=== PATIENT | female | born 1960 | race African-American/Black ===

== ENCOUNTER 2016-08-27 11:14 | Inpatient (IN) ==
[2016-08-27] MEDS ORDERED: SODIUM CHLORIDE 0.9% 500 ML IV STA (11:58)
[2016-08-27] MEDS ORDERED: CEFEPIME 1,000 MG in SODIUM CHLORIDE 0.9% 100 ML IV STA (11:58)
[2016-08-27 12:21] LABS: Basophils % 0.3 % (0.0-0.8); Eosinophils % 0.4 % (0.00-10.9); Hemoglobin 8.6 GM/DL (12.0-16.0); Immature Granulocytes % 5.1 %; Immature Granulocytes Absolute 0.54 #; Lymphocytes # 0.5 10*3/uL (1.4-4.0); Lymphocytes % 5.1 % (21.3-54.2); Mean Corpuscular HGB Conc 31.9 GM/DL (32-36); Mean Corpuscular Hemoglobin 27 PG (27-34); Mean Corpuscular Volume 85.2 FL (87-102); Monocytes # 0.9 10*3/uL (0.11-0.8); NRBC # 0.03 10*3/uL; Neutrophils # 8.6 10*3/uL (1.4-7.4); Neutrophils % 81.1 % (38.7-73.9); Platelet Count 61 T/CUMM (130-400); Red Blood Count 3.17 MC/CUMM (3.8-5.5); Red Cell Distribution Width 19.4 % (9.3-17.3); White Blood Count 10.6 T/CUMM (4-12)
[2016-08-27 12:28] LABS: Amorphous Crystals,Urine Occasional /HPF (Few); Apearance,Urine Slightly Hazy (Clear); Bacteria,Urine Occasional /HPF (Few); Bilirubin,Urine Negative (Negative); Blood, Urine Negative (Negative); Glucose,Urine (UA) Negative (Negative); Ketones,Urine 20 mg/dL (Negative); Mucus,Urine Many /LPF (Occasional); Nitrite,Urine Negative (Negative); Protein,Urine 30 MG/DL; RBC,Urine 9 /HPF (0-4); Squamous Epithelial Cell,Urine Occasional /HPF (0-10); Urine Color Yellow (Yellow); Urine Specific Gravity 1.016 (1.001-1.035); WBC,Urine 3 /HPF (0-6)
[2016-08-27 12:46] LABS: Burr Cells 2+; Hypochromasia 1+; Target Cells Slight
[2016-08-27 12:52] LABS: Albumin 1.5 G/DL (3.4-5.0); Bilirubin,Total 1.4 MG/DL (0.2-1.0); Calcium 7.7 MG/DL (8.5-10.1); Osmolality,Calculated 264.2 MOS/KG (273-304); Potassium 3.5 MMOL/L (3.5-5.1); Total Protein 6.4 G/DL (6.4-8.3)
--- NOTE | 2016-08-27 13:16 | XRay Report ---
XR chest 1V portable Indication: Shortness of breath, fever Comparison: 14 July 2016 Findings: The heart and mediastinum are stable in size and configuration. Right subclavian Port-A-Cath is unchanged in position. The pulmonary vascularity is normal in caliber. Bilateral lower lung linear densities are present similar to previous exams. No other lung infiltrates, effusions, pneumothorax or other abnormality is demonstrated. Impression: No acute findings or significant change. PROCEDURE INTERPRETED AT [facility] DEPARTMENT OF RADIOLOGY Final Report Signed by: Dr. Idris Tang
[2016-08-27] MEDS ORDERED: BENZTROPINE 2 MG/2 ML AMP IV PRN (13:52)
[2016-08-27] MEDS ORDERED: LACTULOSE 20 GM/30 ML UDCUP PO PRN (13:52)
[2016-08-27] MEDS ORDERED: chlorproMAZINE 25 MG TABLET PO PRN (13:52)
[2016-08-27] MEDS ORDERED: ALPRAZolam 0.25 MG TABLET PO PRN (13:52)
[2016-08-27] MEDS ORDERED: MYLANTA/LIDO VISC 2:1 300 ML BOTTLE SWISH/SWAL PRN (13:52)
[2016-08-27] MEDS ORDERED: ALUMINUM/MAGNES/SIMETH MAX STR 30 ML UDCUP PO PRN (13:52)
[2016-08-27] MEDS ORDERED: chlorproMAZINE INJ 50 MG in SODIUM CHLORIDE 0.9% 100 ML IV PRN (13:52)
[2016-08-27] MEDS ORDERED: TEMAZEPAM 7.5 MG CAPSULE PO PRN (13:52)
[2016-08-27] MEDS ORDERED: traMADol 50 MG TABLET PO PRN (13:52)
[2016-08-27] MEDS ORDERED: MYLANTA/LIDO VISC 2:1 300 ML BOTTLE SWISH/SPIT PRN (13:52)
[2016-08-27] MEDS ORDERED: MAGNESIUM HYDROXIDE SUSP 30 ML UDCUP PO PRN (13:52)
[2016-08-27] MEDS ORDERED: guaiFENesin 200 MG/10 ML UDCUP PO PRN (13:52)
[2016-08-27] MEDS ORDERED: LOPERAMIDE 2 MG CAPSULE PO PRN ×2 (13:52)
[2016-08-27] MEDS ORDERED: chlorproMAZINE INJ 25 MG in SODIUM CHLORIDE 0.9% 100 ML IV PRN (13:52)
[2016-08-27] MEDS ORDERED: diphenhydrAMINE CAP 25 MG CAPSULE PO PRN (13:52)
[2016-08-27] MEDS ORDERED: ACETAMINOPHEN 325 MG TABLET PO PRN (13:52)
[2016-08-27] MEDS ORDERED: PROMETHAZINE INJ 25 MG in SODIUM CHLORIDE 0.9% 50 ML IV PRN (13:52)
--- NOTE | 2016-08-27 14:24 | Emergency Department Note ---
Rusty Maciel Emily, am scribing for, and in the presence of, Zay Gage MD 12:17. Too Maciel Phillip K, MD, personally performed the services described in this documentation, ascribed by Irene Ojeda in my presence, and it is both accurate and complete [id number] . Arrival - Arrival Chief Complaint: Nausea/Vomiting/Diarrhea Stated Complaint: dehydrated,n/v,has blood cancer ED Nursing Triage Note: C/O BLOOD IN URINE SINCE LAST EVENING., ALSO C/O HAVING NAUSEA & VOMITING., DENIES HAVING INCREASE TEMP., STATES CURRENTLY BEING TX FOR BREAST CANCER (L)., STATES HER LAST CHEMO WAS 1 MONTH AGO AND HER LAST RADIATION TX WAS TODAY , + LOWER BACK PAIN Mode of Arrival: Wheelchair Limitations: No Limitations Source: Patient - History of Present Illness HPI Narrative: Pt is a 55 y/o female who came to ED with c/o hematuria and intermittent lightheadedness that started last night. Pt notes having blood in urine previously due to UTI, but denies dysuria. Pt has primary CA of left breast and recently dx with bone CA with radiation daily to lower back and 4 out 6 rounds of chemo completed, starting the next round next week. Pt states having low grade fevers, as well. Pt had blood transfusion 2.5 weeks ago for hospitalization under supervision of Dr. Ronquillo. Pt's last chemo tx was one month ago. Onset (ago): day(s) Consistency: constant Severity: moderate, severe Severity scale (1-10): 8 Allergies/Adverse Reactions: Allergies Allergy/AdvReac Type Severity Reaction Status Date / Time No Known Allergies Allergy Verified 08/27/16 11:26 Home Medications: Home Medications Medication Instructions Recorded Confirmed Type Ondansetron HCl 8 mg PO Q6HR PRN 07/13/16 08/27/16 History Polyethylene Glycol Powder 17 gm PO BID 08/15/16 08/27/16 History [Miralax] Dronabinol [Marinol] 5 mg PO BID #60 capsule 08/18/16 08/27/16 Rx Gabapentin Cap/Tab [Neurontin 100 mg PO TID #0 capsule 08/18/16 08/27/16 Rx Cap/Tab] Pantoprazole Tab [Protonix Tab] 40 mg PO DAILY #30 tablet 08/18/16 08/27/16 Rx Rivaroxaban [Xarelto] 10 mg PO BEDTIME #30 tablet 08/18/16 08/27/16 Rx fentaNYL 75 MCG/HR PATCH 1 patch TRANSDERM Q72H patch 08/18/16 08/27/16 Rx [Duragesic 75 Patch] oxyCODONE ER [OxyCONTIN] 20 mg PO QAM tablet 08/18/16 08/27/16 Rx oxyCODONE ER [OxyCONTIN] 40 mg PO Q12HR tablet 08/18/16 08/27/16 Rx Letrozole [Femara] 2.5 mg PO QAM 08/27/16 08/27/16 History Review of System - Review of System 12 point system: reviewed and no additional remarkable complaints except as stated - Review of System Constitutional: Present: fever (low grade), weakness. Absent: diaphoresis Respiratory: Absent: respiratory distress Cardiovascular: Absent: chest pain Gastrointestinal: Absent: abdominal pain (mild, lower ), nausea, vomiting Musculoskeletal: Present: lower back pain (from radiation tx). Absent: arm pain , leg pain, neck pain Skin: Absent: rash Neurological: Absent: headache Medical,Surgical,& Family Hx - Medical History Cardio: History of: Hypertension Neurology: No history of: Seizures Other: History of: Cancer (breast ca) - Surgical History Cardiac Surgeries: Patient Denies: Cardiac Catheterization Thoracic Surgeries: Patient denies;: Lobectomy Neurologic Surgeries: Patient denies: Neurologic Surgery Reproductive Surgeries: Patient denies;: Gynecologic Surgery - Family History Family History: Reports;: Family Cancer (sister), Family Heart Disease (mother) - Social History Smoking Status: Smoker, status unknown Frequency of Alcohol Use: None Type of Drug Use: None Marital Status: Lives With:: Spouse Functional capacity: independent ambulation Exam Vital Signs: Vital Signs Temperature 99.1 F 08/27/16 11:49 Pulse Rate 109 H 08/27/16 12:15 Respiratory Rate 17 08/27/16 12:15 Blood Pressure 83/52 08/27/16 12:15 O2 Sat by Pulse Oximetry 100 08/27/16 12:15 - General General appearance: alert, in no apparent distress - Head Head exam: Present: atraumatic, normocephalic - Eye Eye exam: Present: PERRL, EOMI - ENT ENT exam: Present: mucous membranes moist. Absent: mucous membranes dry - Neck Neck exam: Present: full ROM. Absent: tenderness - Chest Chest inspection: Present: symmetric chest wall rise. Absent: tenderness - Respiratory Respiratory exam: Present: normal lung sounds bilaterally. Absent: respiratory distress - Cardiovascular Cardiovascular exam: Present: tachycardia, normal heart sounds - Abdominal Exam Abdominal exam: Present: soft. Absent: distention, tenderness, guarding - Extremities Exam Extremities exam: Present: full ROM. Absent: tenderness, pedal edema - Neurological Exam Neurological exam: Present: alert, oriented X3, CN II-XII intact. Absent: motor sensory deficit - Psychiatric Psychiatric exam: Present: normal affect, normal mood - Skin Skin exam: Present: warm, dry, intact Course Course Narrative: Patient discussed with Dr. Ronquillo who will admit for further evaluation. Results - Labs CBC & BMP: 08/27/16 12:05 08/27/16 12:05 Lab Results: I have reviewed the patients labs Labs: Laboratory Tests 08/27/16 08/27/16 12:05 12:05 RBC 3.17 L Hgb 8.6 L Hct 27.0 L MCV 85.2 L MCHC 31.9 L RDW 19.4 H Plt Count 61 L Neut % (Auto) 81.1 H Lymph % (Auto) 5.1 L Neut # (Auto) 8.6 H Lymph # (Auto) 0.5 L Miller # (Auto) 0.9 H Urine Urobilinogen 2.0 H Laboratory Tests 08/27/16 12:05 RBC 3.17 L Hgb 8.6 L Hct 27.0 L MCV 85.2 L MCHC 31.9 L RDW 19.4 H Plt Count 61 L Neut % (Auto) 81.1 H Lymph % (Auto) 5.1 L Neut # (Auto) 8.6 H Lymph # (Auto) 0.5 L Miller # (Auto) 0.9 H Laboratory Tests 08/27/16 12:05 Urine Blood Negative Laboratory Tests 08/27/16 12:05 Sodium 134 L Carbon Dioxide 17 L Anion Gap 18.5 H Creatinine 0.50 L Calculated Osmolality 264.2 L Calcium 7.7 L Total Bilirubin 1.40 H AST 47 H Alkaline Phosphatase 465 H Albumin 1.5 L Globulin 4.9 H Albumin/Globulin Ratio 0.3 L Laboratory Tests 08/27/16 12:05 Magnesium 2.5 H Lactate Dehydrogenase 633 H - Diagnostic Findings Procedure: Chest x-ray: report reviewed by me (No acute findings or significant change.) Disposition Clinical Impression: Lumbar back pain with radiculopathy affecting left lower extremity, Bone metastases, Intractable pain, Breast cancer, Hematuria Case discussed with: patient, patient's family Disposition: Still a Patient Condition: Guarded
[2016-08-27 14:32] LABS: Magnesium 2.5 MG/DL (1.8-2.4); Uric Acid 4.3 MG/DL (2.6-6.0)
[2016-08-27] MEDS: DEXTROSE 5% NACL 0.45% 1,000 ML IV SCH (15:56)
[2016-08-27] MEDS: ONDANSETRON 4 MG/2 ML VIAL IV PRN ×2 (16:07→20:42)
[2016-08-27] MEDS: fentaNYL 100 MCG/HR PATCH TRANSDERM SCH (16:27)
[2016-08-27] MEDS: HYDROmorphone 2 MG/1 ML VIAL IV PRN ×3 (16:28→22:32)
--- NOTE | 2016-08-27 17:08 | XRay Report ---
Referring Physician: Luiz Ronquillo MD Exam: XR KUB Date: August 27, 2016 at 4:14 PM Reason: Generalized abdominal pain Comparison: CT abdomen and pelvis July 13, 2016 Findings: There is mild scattered air within the bowel but no evidence of bowel obstruction. No free air is identified. The renal shadows are largely obscured, but no definite renal calculi are identified. Note is made of a stent within the right upper quadrant, which likely represents a biliary duct stent. Multiple lucent osseous lesions were seen at the spine and pelvis on a recent CT and are better demonstrated on CT. There is a mildly displaced fracture of the right lateral ninth rib, which is not seen on the previous CT and may be pathologic. Impression: 1. There is mild scattered air within the bowel but no evidence of bowel obstruction. 2. There is now a probable common bile duct stent. 3. The patient has known multiple osseous lesions which are better demonstrated on CT. There is also a displaced fracture of the right lateral ninth rib, which may be pathologic. This is not seen on the prior CT. PROCEDURE INTERPRETED AT [facility] DEPARTMENT OF RADIOLOGY Final Report Signed by: Dr. Jaswinder Armenta
[2016-08-27] MEDS ORDERED: METHYLNALTREXONE 12 MG/0.6 ML VIAL SUBCUT ONE (18:00)
[2016-08-27] MEDS: oxyCODONE ER 40 MG TABLET PO SCH (20:36)
[2016-08-27] MEDS ORDERED: LACTULOSE 20 GM/30 ML UDCUP PO SCH (21:00)
[2016-08-28] MEDS ORDERED: HEPARIN LOCK FLUSH 500 UNIT/5 ML SYRINGE IV ONE (02:01)
[2016-08-28 04:58] LABS: Basophils % 0.2 % (0.0-0.8); Eosinophils % 0.7 % (0.00-10.9); Hematocrit 20.4 VOL% (35.7-47.0); Hemoglobin 6.5 GM/DL (12.0-16.0); Immature Granulocytes % 4.9 %; Immature Granulocytes Absolute 0.27 #; Lymphocytes # 0.3 10*3/uL (1.4-4.0); Mean Corpuscular HGB Conc 31.9 GM/DL (32-36); Mean Corpuscular Hemoglobin 26 PG (27-34); Mean Corpuscular Volume 82.9 FL (87-102); Mean Platelet Volume 12.2 FL (9.6-12.0); Monocytes # 0.5 10*3/uL (0.11-0.8); Monocytes % 8.2 % (1.7-12.7); NRBC # 0.03 10*3/uL; Neutrophils # 4.4 10*3/uL (1.4-7.4); Red Blood Count 2.46 MC/CUMM (3.8-5.5); Red Cell Distribution Width 19.5 % (9.3-17.3); White Blood Count 5.5 T/CUMM (4-12)
[2016-08-28 05:07] LABS: Platelet Count 44 T/CUMM (130-400)
[2016-08-28 05:41] LABS: Band Neutrophils 3 % (0-10); Hypochromasia 1+; Lymphocytes 6 % (20-55); Ovalocytes Slight; Platelet Estimate Decreased; Segmented Neutrophils 83 % (50-85); Total Cells Counted 100
[2016-08-28 05:42] LABS: Microcytosis Slight
[2016-08-28] MEDS: DEXTROSE 5% NACL 0.45% 1,000 ML IV SCH ×2 (06:05→20:30)
[2016-08-28] MEDS ORDERED: SODIUM CHLORIDE 0.9% 250 ML IV PRN (07:18)
--- NOTE | 2016-08-28 07:24 | Oncology History&Physical ---
Assessment and Plan (1) Constipation Status: Acute Current Visit: Yes (2) Biliary obstruction due to cancer Status: Acute Current Visit: No (3) Liver metastases Status: Acute Current Visit: No (4) Bone metastases Status: Acute Current Visit: Yes (5) DVT (deep venous thrombosis) Status: Acute Current Visit: No (6) Intractable pain Status: Acute Current Visit: Yes (7) Breast cancer Status: Acute Current Visit: Yes History of Present Illness History of present illness: Ms. Johns is a 55 year old female who is very aggressive breast cancer that is only weakly positive for estrogen receptor and progressed to first-line chemotherapy who is currently receiving palliative chemotherapy to her pelvis due to a large painful left sacral lesion. She has deteriorated fairly rapidly throughout treatment. Her biggest issue is severe diffuse body pain. She also has a known DVT in her left upper extremity and has been on Xarelto for this. She presented to the emergency room yesterday with severe pain and hematuria. The history is difficult to obtain from them as there is one report that his only blood located on the tissue after wiping and other family members report that there is blood throughout the toilet after each urination. Her urinalysis yesterday showed no obvious blood and only had 9 red blood cells reported. She is being covered with antibiotics. She is admitted for pain control and close observation. This morning her hemoglobin is down to 6 we will transfuse 2 units of blood. She has had issues with severe pancytopenia ever since beginning radiation and chemotherapy. She also reports not having a bowel movement now for almost a week. We attempted 1 dose of Relistor yesterday evening and placed her on lactulose twice daily. Home Medications Medication Instructions Recorded Confirmed Type Ondansetron HCl 8 mg PO Q6HR PRN 07/13/16 08/27/16 History Polyethylene Glycol Powder 17 gm PO BID 08/15/16 08/27/16 History [Miralax] Dronabinol [Marinol] 5 mg PO BID #60 capsule 08/18/16 08/27/16 Rx Gabapentin Cap/Tab [Neurontin 100 mg PO TID #0 capsule 08/18/16 08/27/16 Rx Cap/Tab] Pantoprazole Tab [Protonix Tab] 40 mg PO DAILY #30 tablet 08/18/16 08/27/16 Rx Rivaroxaban [Xarelto] 10 mg PO BEDTIME #30 tablet 08/18/16 08/27/16 Rx fentaNYL 75 MCG/HR PATCH 1 patch TRANSDERM Q72H patch 08/18/16 08/27/16 Rx [Duragesic 75 Patch] oxyCODONE ER [OxyCONTIN] 40 mg PO Q12HR tablet 08/18/16 08/27/16 Rx Letrozole [Femara] 2.5 mg PO QAM 08/27/16 08/27/16 History Allergies Allergy/AdvReac Type Severity Reaction Status Date / Time No Known Allergies Allergy Verified 08/27/16 11:26 Medical,Surgical,& Family Hx - Medical History Cardio: History of: Hypertension Neurology: No history of: Seizures Other: History of: Cancer (breast ca) - Surgical History Cardiac Surgeries: Patient Denies: Cardiac Catheterization Thoracic Surgeries: Patient denies;: Lobectomy Neurologic Surgeries: Patient denies: Neurologic Surgery Reproductive Surgeries: Patient denies;: Gynecologic Surgery - Family History Family History: Reports;: Family Cancer (sister), Family Heart Disease (mother) - Social History Smoking Status: Unknown if ever smoked Frequency of Alcohol Use: None Type of Drug Use: None - Constitutional Constitutional: Present: fatigue, malaise, weakness. Absent: chills, fever(s) - Cardiovascular Cardiovascular ROS IM: Absent: chest pain, edema - Respiratory Respiratory: Absent: cough, dyspnea, hemoptysis - Gastrointestinal Gastrointestinal: Present: abdominal pain, constipation, nausea. Absent: diarrhea, vomiting - Genitourinary Genitourinary ROS female: Present: dysuria, hematuria, urinary frequency - Psychiatric Psychiatric General: Present: anxiety, depression Exam - Constitutional Vitals: Period Temp Pulse Resp BP Sys/Mar[place]illa Pulse Ox Last 24 Hr 98.2 F-99.2 F 97-114 16-22 100-112/54-74 94-100 General appearance: mild distress, under weight - Head Head Exam: Present: normocephalic, atraumatic - Eye Eye Exam: Present: EOMI Pupils: Present: PERRL - ENT ENT exam: Present: normal exam, normal oropharynx - Neck Neck exam: Absent: lymphadenopathy, thyromegaly - Respiratory Respiratory exam: Present: CTAB. Absent: wheezes - Cardiovascular Cardiovascular exam: Present: RRR. Absent: JVD - GI/Abdominal GI/Abdominal exam: Present: firm, hypoactive bowel sounds, soft. Absent: ascites, distended, guarding, mass, tenderness - Neurological Exam Neurological exam: Present: alert, oriented X3 - Psychiatric Psychiatric exam: Present: normal affect, normal mood - Skin Skin exam: Present: warm, dry Results - Labs CBC & BMP: 08/28/16 04:00 08/27/16 12:05
[2016-08-28] MEDS ORDERED: ONDANSETRON 4 MG TABLET PO PRN (07:30)
[2016-08-28] MEDS: cefTRIAXone 1,000 MG in SODIUM CHLORIDE 0.9% 100 ML IV SCH (08:16)
[2016-08-28] MEDS ORDERED: oxyCODONE ER 40 MG TABLET PO SCH (09:00)
[2016-08-28] MEDS: GABAPENTIN 100 MG CAPSULE PO SCH ×3 (09:03→20:30)
[2016-08-28] MEDS: oxyCODONE ER 40 MG TABLET PO SCH ×2 (09:03→20:30)
[2016-08-28] MEDS: PANTOPRAZOLE 40 MG TABLET PO SCH (09:03)
[2016-08-28] MEDS: LACTULOSE 20 GM/30 ML UDCUP PO SCH ×2 (09:04→20:29)
[2016-08-28] MEDS: ONDANSETRON 4 MG/2 ML VIAL IV PRN (10:03)
[2016-08-29 05:01] LABS: Basophils % 0.2 % (0.0-0.8); Eosinophils % 0.5 % (0.00-10.9); Hematocrit 28.3 VOL% (35.7-47.0); Hemoglobin 9.2 GM/DL (12.0-16.0); Immature Granulocytes % 5.1 %; Immature Granulocytes Absolute 0.33 #; Lymphocytes # 0.4 10*3/uL (1.4-4.0); Lymphocytes % 5.9 % (21.3-54.2); Mean Corpuscular HGB Conc 32.5 GM/DL (32-36); Mean Corpuscular Hemoglobin 27 PG (27-34); Monocytes # 0.6 10*3/uL (0.11-0.8); Monocytes % 9.8 % (1.7-12.7); NRBC # 0.03 10*3/uL; Neutrophils # 5.1 10*3/uL (1.4-7.4); Neutrophils % 78.5 % (38.7-73.9); Red Blood Count 3.41 MC/CUMM (3.8-5.5); White Blood Count 6.5 T/CUMM (4-12)
[2016-08-29 05:34] LABS: Albumin 1.2 G/DL (3.4-5.0); Bilirubin,Total 1.1 MG/DL (0.2-1.0); Calcium 7.3 MG/DL (8.5-10.1); Magnesium 2.3 MG/DL (1.8-2.4); Platelet Count 33 T/CUMM (130-400); Potassium 2.8 MMOL/L (3.5-5.1); Total Protein 5.2 G/DL (6.4-8.3)
[2016-08-29 06:12] LABS: Lymphocytes 5 % (20-55); Total Cells Counted 100
[2016-08-29 06:13] LABS: Band Neutrophils 5 % (0-10); Metamyelocytes 4 %; Myelocytes 1 %; Platelet Estimate Decreased; Segmented Neutrophils 79 % (50-85)
[2016-08-29 06:14] LABS: Hypochromasia 2+
[2016-08-29] MEDS: HYDROmorphone 2 MG/1 ML VIAL IV PRN (06:38)
[2016-08-29] MEDS: GABAPENTIN 100 MG CAPSULE PO SCH ×3 (09:09→20:45)
[2016-08-29] MEDS: cefTRIAXone 1,000 MG in SODIUM CHLORIDE 0.9% 100 ML IV SCH (09:09)
[2016-08-29] MEDS: PANTOPRAZOLE 40 MG TABLET PO SCH (09:10)
[2016-08-29] MEDS: oxyCODONE ER 40 MG TABLET PO SCH ×2 (09:10→20:44)
[2016-08-29] MEDS: LACTULOSE 20 GM/30 ML UDCUP PO SCH ×2 (09:12→20:44)
--- NOTE | 2016-08-29 09:54 | Oncology Progress Note ---
Assessment and Plan (1) Constipation Status: Acute Current Visit: Yes (2) Biliary obstruction due to cancer Status: Acute Current Visit: No (3) Liver metastases Status: Acute Current Visit: No (4) Bone metastases Status: Acute Current Visit: Yes (5) DVT (deep venous thrombosis) Status: Acute Current Visit: No (6) Intractable pain Status: Acute Current Visit: Yes (7) Breast cancer Status: Acute Current Visit: Yes Oncology Subjective PN Interval history: Ms. Johns states she feels better today. She received 2 units of blood yesterday with a good response based on her hemoglobin. She is hypokalemic today as well add potassium to her IV fluids. We are holding her anticoagulation for her known left upper extremity DVT due to her persistent vaginal bleeding versus hematuria. She states she is wearing a pad which only has occasional blood spots throughout the day. We will continue with IV narcotics for pain control. Her prognosis remains very poor and I read that to the daughter this morning. I anticipate that she will be in the hospital for a few days just like last time. Will resume radiation tomorrow once they return. Exam - Constitutional Vitals: Period Temp Pulse Resp BP Sys/Maravilla Pulse Ox Last 24 Hr 98.2 F-100.2 F 92-116 16-20 92-143/52-72 95-100 General appearance: normal weight, mild distress - Head Head Exam: Present: normocephalic, atraumatic - Eye Eye Exam: Present: EOMI Pupils: Present: PERRL - ENT ENT exam: Present: normal exam, normal oropharynx - Neck Neck exam: Absent: lymphadenopathy, thyromegaly - Respiratory Respiratory exam: Present: CTAB. Absent: wheezes - Cardiovascular Cardiovascular exam: Present: RRR. Absent: irregular rhythm, JVD - GI/Abdominal GI/Abdominal exam: Present: soft. Absent: ascites, distended, mass - Neurological Exam Neurological exam: Present: alert, oriented X3 - Skin Skin exam: Present: warm, dry Results - Labs CBC & BMP: 08/29/16 04:00 08/29/16 04:00 Lab Results: I have reviewed the past 24 hour labs
[2016-08-29] MEDS: DEXT 5% NACL 0.45% KCL 20 MEQ 20 MEQ/1,000 ML BAG IV SCH (10:21)
[2016-08-30] MEDS: DEXT 5% NACL 0.45% KCL 20 MEQ 20 MEQ/1,000 ML BAG IV SCH (04:42)
[2016-08-30 06:10] LABS: Basophils % 0.2 % (0.0-0.8); Eosinophils # 0.1 10*3/uL (0.0-0.87); Eosinophils % 0.9 % (0.00-10.9); Hematocrit 25.4 VOL% (35.7-47.0); Hemoglobin 8.4 GM/DL (12.0-16.0); Immature Granulocytes % 4.8 %; Immature Granulocytes Absolute 0.27 #; Lymphocytes # 0.5 10*3/uL (1.4-4.0); Lymphocytes % 8.1 % (21.3-54.2); Mean Corpuscular HGB Conc 33.1 GM/DL (32-36); Mean Corpuscular Hemoglobin 27 PG (27-34); Mean Corpuscular Volume 82.7 FL (87-102); Monocytes # 0.6 10*3/uL (0.11-0.8); Monocytes % 9.9 % (1.7-12.7); NRBC # 0.04 10*3/uL; Neutrophils # 4.3 10*3/uL (1.4-7.4); Neutrophils % 76.1 % (38.7-73.9); Red Blood Count 3.07 MC/CUMM (3.8-5.5); Red Cell Distribution Width 18.4 % (9.3-17.3); White Blood Count 5.6 T/CUMM (4-12)
[2016-08-30 06:15] LABS: Platelet Count 25 T/CUMM (130-400)
[2016-08-30 06:34] LABS: Calcium 7.1 MG/DL (8.5-10.1); Magnesium 2.1 MG/DL (1.8-2.4); Osmolality,Calculated 269.8 MOS/KG (273-304); Potassium 3.1 MMOL/L (3.5-5.1)
[2016-08-30 06:42] LABS: Band Neutrophils 3 % (0-10); Eosinophils 1 % (0-10); Hypochromasia 2+; Nucleated Red Blood Cells 1 (0-5); Platelet Estimate Decreased; Segmented Neutrophils 89 % (50-85); Total Cells Counted 100
[2016-08-30] MEDS ORDERED: SODIUM CHLORIDE 0.9% 250 ML IV PRN ×2 (07:40→09:10)
--- NOTE | 2016-08-30 07:48 | Oncology Progress Note ---
Assessment and Plan (1) Breast cancer Status: Acute Current Visit: Yes (2) Intractable pain Status: Acute Current Visit: Yes (3) Constipation Status: Acute Current Visit: Yes (4) Biliary obstruction due to cancer Status: Acute Current Visit: No (5) Liver metastases Status: Acute Current Visit: No (6) Bone metastases Status: Acute Current Visit: Yes (7) DVT (deep venous thrombosis) Status: Acute Current Visit: No (8) Pancytopenia Status: Acute Current Visit: Yes Oncology Subjective PN Interval history: Ms. Johns states that her pain is slightly better than it was upon admission but she is still having fairly significant mid low back pain. She completed radiation last week so she does not need to be transported there today. Her platelet count is down to 25,000. I think her pancytopenia is most likely related to radiation effects to her pelvis along with diffuse marrow involvement from tumor. She has not had chemotherapy now in almost 5 weeks. I will increase her Neurontin to a dose of 300 mg p.o. twice daily. She is receiving Dilaudid IV every 2 hours. If this continues we may have to consider a JOB ESTIMATOR pump. We will continue with long-acting oxycodone at 40 mg twice daily. She also has a fentanyl patch at [address] Jo with pain management has seen her before so we will consider consulting him in the next day or 2 if her pain does not improve. I do not see where some type of injection or nerve block is feasible for her at this point due to diffuse bony involvement. Her prognosis is very poor. This tumor was neglected for many many months and now I am afraid that we are not able to turn around her disease course. She very well may not leave the hospital from this admission. I will consult physical therapy to begin work with her to at least try to get her out of bed and assist with ambulation. She continues to have slight vaginal bleeding so I am transfusing platelets today. If this persists, we will consider a GILL TENDER consult. I have held her Xarelto due to her GILL TENDER bleeding and her severe pancytopenia. She has known left upper extremity DVT is at high risk for further DVT elsewhere. I have no choice but to hold her anticoagulation at this point. Exam - Constitutional Vitals: Period Temp Pulse Resp BP Sys/Maravilla Pulse Ox Last 24 Hr 98.1 F-100.3 F 82-120 18-20 85-113/52-70 94-97 General appearance: normal weight, mild distress - Head Head Exam: Present: normocephalic, atraumatic - Eye Eye Exam: Present: EOMI Pupils: Present: PERRL - ENT ENT exam: Present: normal exam, normal oropharynx - Neck Neck exam: Absent: lymphadenopathy, thyromegaly - Respiratory Respiratory exam: Present: CTAB. Absent: wheezes - Cardiovascular Cardiovascular exam: Present: RRR. Absent: irregular rhythm, JVD - GI/Abdominal GI/Abdominal exam: Present: soft. Absent: ascites, distended, mass - Neurological Exam Neurological exam: Present: alert, oriented X3 - Psychiatric Psychiatric exam: Present: depressed - Skin Skin exam: Present: warm, dry Results - Labs CBC & BMP: 08/30/16 04:00 08/30/16 04:00 Lab Results: I have reviewed the past 24 hour labs
[2016-08-30] MEDS: fentaNYL 100 MCG/HR PATCH TRANSDERM SCH (08:03)
[2016-08-30] MEDS: oxyCODONE ER 40 MG TABLET PO SCH ×2 (08:06→20:58)
[2016-08-30] MEDS: cefTRIAXone 1,000 MG in SODIUM CHLORIDE 0.9% 100 ML IV SCH (08:10)
[2016-08-30] MEDS: HYDROmorphone 2 MG/1 ML VIAL IV PRN ×2 (08:13→13:44)
[2016-08-30] MEDS: DEXT 5% NACL 0.45% KCL 40 MEQ 40 MEQ/1,000 ML BAG IV SCH (08:53)
[2016-08-30] MEDS: LACTULOSE 20 GM/30 ML UDCUP PO SCH ×2 (10:21→20:57)
[2016-08-30] MEDS: PANTOPRAZOLE 40 MG TABLET PO SCH (10:22)
[2016-08-30] MEDS: GABAPENTIN 300 MG CAPSULE PO SCH ×2 (10:22→20:58)
[2016-08-31 05:14] LABS: Basophils % 0.4 % (0.0-0.8); Eosinophils % 0.7 % (0.00-10.9); Hematocrit 26.2 VOL% (35.7-47.0); Hemoglobin 8.4 GM/DL (12.0-16.0); Immature Granulocytes % 3.6 %; Lymphocytes # 0.5 10*3/uL (1.4-4.0); Lymphocytes % 8.4 % (21.3-54.2); Mean Corpuscular HGB Conc 32.1 GM/DL (32-36); Mean Corpuscular Hemoglobin 27 PG (27-34); Mean Corpuscular Volume 85.1 FL (87-102); Mean Platelet Volume 11.6 FL (9.6-12.0); Monocytes # 0.5 10*3/uL (0.11-0.8); Monocytes % 9.3 % (1.7-12.7); NRBC # 0.02 10*3/uL; Neutrophils # 4.3 10*3/uL (1.4-7.4); Neutrophils % 77.6 % (38.7-73.9); Platelet Count 42 T/CUMM (130-400); Red Blood Count 3.08 MC/CUMM (3.8-5.5); Red Cell Distribution Width 18.6 % (9.3-17.3); White Blood Count 5.6 T/CUMM (4-12)
[2016-08-31 05:37] LABS: Band Neutrophils 3 % (0-10); Eosinophils 1 % (0-10); Lymphocytes 4 % (20-55); Metamyelocytes 1 %; Segmented Neutrophils 85 % (50-85); Total Cells Counted 100
[2016-08-31 05:38] LABS: Acanthocytes Few; Burr Cells Slight; Hypochromasia 1+; Microcytosis 1+; Platelet Estimate Decreased
[2016-08-31 05:41] LABS: Calcium 7.4 MG/DL (8.5-10.1); Magnesium 2.1 MG/DL (1.8-2.4); Osmolality,Calculated 272.7 MOS/KG (273-304); Potassium 3.7 MMOL/L (3.5-5.1)
[2016-08-31] MEDS: DEXT 5% NACL 0.45% KCL 40 MEQ 40 MEQ/1,000 ML BAG IV SCH (05:48)
--- NOTE | 2016-08-31 07:52 | Oncology Progress Note ---
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 Johns appears about the same as yesterday. She still complains of back pain particularly after she ambulates and before bedtime. She did not agree to therapy yesterday. She continues to have vaginal bleeding and states she used 4 -5 pads yesterday. She denies any blood in her urine when she urinates. She is getting out of bed numerous times today to go to the restroom. I have held anticoagulation for her known left upper extremity DVT due to her thrombocytopenia and her ABALONE FISHERMAN bleeding. I think it would be miller to ask gynecology to evaluate her for the possible source of bleeding particularly since I am holding anticoagulation. We do have ESTRELLITA hose in place and she is ambulating to help prevent further DVT. For now we are basically just managing her pain. She does not appear to be overtly infected. She is very weak and is not taking in very much p.o. intake. I had a lengthy conversation with her friend today who is in the room every day with her. I explained to him that she is doing very poorly I think that she is not going to make it much longer in her current condition. She is requiring significant amounts of narcotic and I think she is also given up. She continues not to eat and not get out of bed very much. Her prognosis is likely measured only in a few months. She is to pancytopenic for chemotherapy at this time. If her blood counts remain stable for the next 24-48 hours, we could consider another dose of chemotherapy. However, I am unsure if chemotherapy would really be of any benefit to her since she failed first-line chemotherapy just 2 months ago. It is a very sad situation. Exam - Constitutional Vitals: Period Temp Pulse Resp BP Sys/Maravilla Pulse Ox Last 24 Hr 98.6 F-99.9 F 101-106 16-20 90-112/53-64 94-98 General appearance: normal weight, no acute distress - Head Head Exam: Present: normocephalic, atraumatic - Eye Eye Exam: Present: EOMI Pupils: Present: PERRL - ENT ENT exam: Present: normal exam, normal oropharynx - Neck Neck exam: Absent: lymphadenopathy, thyromegaly - Respiratory Respiratory exam: Present: CTAB. Absent: wheezes - Cardiovascular Cardiovascular exam: Present: RRR. Absent: irregular rhythm, JVD - GI/Abdominal GI/Abdominal exam: Present: soft. Absent: ascites, distended, mass - Neurological Exam Neurological exam: Present: alert, oriented X3 - Psychiatric Psychiatric exam: Present: normal affect, normal mood - Skin Skin exam: Present: warm, dry Results - Labs CBC & BMP: 08/31/16 04:00 08/31/16 04:00 Lab Results: I have reviewed the past 24 hour labs
[2016-08-31] MEDS: cefTRIAXone 1,000 MG in SODIUM CHLORIDE 0.9% 100 ML IV SCH (08:49)
[2016-08-31] MEDS: LETROZOLE 2.5 MG TABLET PO SCH (08:49)
[2016-08-31] MEDS: oxyCODONE ER 40 MG TABLET PO SCH ×2 (08:49→20:43)
[2016-08-31] MEDS: PANTOPRAZOLE 40 MG TABLET PO SCH (08:49)
[2016-08-31] MEDS: GABAPENTIN 300 MG CAPSULE PO SCH ×2 (08:50→20:43)
[2016-08-31] MEDS: LACTULOSE 20 GM/30 ML UDCUP PO SCH ×2 (10:28→20:43)
[2016-08-31] MEDS: DEXTROSE 5% NACL 0.45% 1,000 ML IV SCH (17:36)
[2016-09-01] MEDS: DEXT 5% NACL 0.45% KCL 40 MEQ 40 MEQ/1,000 ML BAG IV SCH ×2 (02:26→22:17)
[2016-09-01] MEDS: HYDROmorphone 2 MG/1 ML VIAL IV PRN ×2 (04:20→22:16)
[2016-09-01 05:58] LABS: Eosinophils % 0.9 % (0.00-10.9); Hematocrit 24.7 VOL% (35.7-47.0); Hemoglobin 8.2 GM/DL (12.0-16.0); Immature Granulocytes % 2.1 %; Lymphocytes # 0.4 10*3/uL (1.4-4.0); Lymphocytes % 9.4 % (21.3-54.2); Mean Corpuscular HGB Conc 33.2 GM/DL (32-36); Mean Corpuscular Hemoglobin 29 PG (27-34); Mean Corpuscular Volume 86.1 FL (87-102); Mean Platelet Volume 13.1 FL (9.6-12.0); Monocytes # 0.5 10*3/uL (0.11-0.8); Monocytes % 10.4 % (1.7-12.7); NRBC # 0.02 10*3/uL; Neutrophils # 3.6 10*3/uL (1.4-7.4); Neutrophils % 77.2 % (38.7-73.9); Red Blood Count 2.87 MC/CUMM (3.8-5.5); Red Cell Distribution Width 18.5 % (9.3-17.3); White Blood Count 4.7 T/CUMM (4-12)
[2016-09-01 06:05] LABS: Platelet Count 31 T/CUMM (130-400)
[2016-09-01 06:36] LABS: Calcium 7.1 MG/DL (8.5-10.1); Osmolality,Calculated 268.8 MOS/KG (273-304)
[2016-09-01 07:06] LABS: Band Neutrophils 3 % (0-10); Eosinophils 1 % (0-10); Hypochromasia 1+; Lymphocytes 7 % (20-55); Segmented Neutrophils 81 % (50-85); Total Cells Counted 100
[2016-09-01 07:07] LABS: Microcytosis 1+; Platelet Estimate Decreased
--- NOTE | 2016-09-01 07:20 | Oncology Progress Note ---
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 Johns seems about the same today. She states her pain is fairly well- controlled with her current regimen. We had a lengthy discussion today about her lack of motivation to get out of bed and participate in physical therapy. I explained to her that with her current decreased p.o. intake and lack of ambulation, she will not likely survive very long. She needs to do more physical activity and improve her p.o. intake if we are ever going to have a chance of giving her any type of meaningful survival. Her blood counts are still too low for chemotherapy. Even weekly dose chemotherapy would be too toxic for her at this time. She is on Femara and hopefully this is providing some benefit. She is still having vaginal spotting and we have asked CLOTH TEARER to evaluate her for this. I do not think giving her any platelets will change this as she was having spotting even with the platelet count closer to 50. She has been on Rocephin for the last 4 days. I am still holding her anticoagulation due to her thrombocytopenia and her vaginal bleeding. Exam - Constitutional Vitals: Period Temp Pulse Resp BP Sys/Maravilla Pulse Ox Last 24 Hr 97.5 F-99.6 F 99-105 16-20 86-93/48-56 94-98 General appearance: normal weight, no acute distress - Head Head Exam: Present: normocephalic, atraumatic - Eye Eye Exam: Present: EOMI Pupils: Present: PERRL - ENT ENT exam: Present: normal exam, normal oropharynx - Neck Neck exam: Absent: lymphadenopathy, thyromegaly - Respiratory Respiratory exam: Present: CTAB. Absent: wheezes - Cardiovascular Cardiovascular exam: Present: RRR. Absent: JVD, systolic murmur - GI/Abdominal GI/Abdominal exam: Present: soft. Absent: ascites, distended, mass - Neurological Exam Neurological exam: Present: alert, oriented X3 - Psychiatric Psychiatric exam: Present: normal affect, normal mood - Skin Skin exam: Present: warm, dry Results - Labs CBC & BMP: 09/01/16 04:00 09/01/16 04:00 Lab Results: I have reviewed the past 24 hour labs
[2016-09-01] MEDS: LACTULOSE 20 GM/30 ML UDCUP PO SCH ×2 (09:52→21:12)
[2016-09-01] MEDS: LETROZOLE 2.5 MG TABLET PO SCH (09:52)
[2016-09-01] MEDS: GABAPENTIN 300 MG CAPSULE PO SCH ×2 (09:52→21:12)
[2016-09-01] MEDS: PANTOPRAZOLE 40 MG TABLET PO SCH (09:52)
[2016-09-01] MEDS: oxyCODONE ER 40 MG TABLET PO SCH ×2 (09:52→21:08)
--- NOTE | 2016-09-01 12:12 | Consultation ---
Assessment and Plan (1) Postmenopausal bleeding Status: Acute Assessment and plan: Pelvic ultrasound ordered to assess endometrial thickness. This patient's bleeding has 2 probabilities. #1 she perhaps has endometrial hyperplasia versus endometrial CA. #2 probably could be a result of the recent initiation of Xarelto. As of note the bleeding has decreased since his Xarelto dosing has decreased. We will continue to follow post ultrasound for further recommendation. Current Visit: Yes (2) Bone metastases Status: Acute Current Visit: Yes (3) Intractable pain Status: Acute Current Visit: Yes (4) Breast cancer Status: Acute Current Visit: Yes (5) Vaginal bleeding Status: Acute Current Visit: Yes History of Present Illness - Data of Consult Patient: new to practice Consult date: 09/01/16 Requesting Physician: Luiz Ronquillo - Consult Narrative Reason for consult: Vaginal bleeding History of present illness: Ms. Johns is a 55 year old female With aggressive and metastatic breast cancer with metastasis to the bone who was admitted secondary to pain. Patient reported vaginal bleeding 4 days. She states that the bleeding is spotting that she sees in her undergarments. She also admits that she was recently started on Xarelto for known DVT approximately 1 month ago. 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 CC: Luiz Ronquillo MD - Home Medications and Allergies Home Medications: Home Medications Medication Instructions Recorded Confirmed Type Ondansetron HCl 8 mg PO Q6HR PRN 07/13/16 08/27/16 History Polyethylene Glycol Powder 17 gm PO BID 08/15/16 08/27/16 History [Miralax] Dronabinol [Marinol] 5 mg PO BID #60 capsule 08/18/16 08/27/16 Rx Gabapentin Cap/Tab [Neurontin 100 mg PO TID #0 capsule 08/18/16 08/27/16 Rx Cap/Tab] Pantoprazole Tab [Protonix Tab] 40 mg PO DAILY #30 tablet 08/18/16 08/27/16 Rx Rivaroxaban [Xarelto] 10 mg PO BEDTIME #30 tablet 08/18/16 08/27/16 Rx fentaNYL 75 MCG/HR PATCH 1 patch TRANSDERM Q72H patch 08/18/16 08/27/16 Rx [Duragesic 75 Patch] oxyCODONE ER [OxyCONTIN] 40 mg PO Q12HR tablet 04/26/17 05/05/17 Rx Letrozole [Femara] 2.5 mg PO QAM 08/27/16 08/27/16 History Allergies/Adverse Reactions: Allergies Allergy/AdvReac Type Severity Reaction Status Date / Time No Known Allergies Allergy Verified 08/27/16 11:26 12 point system: reviewed and no additional remarkable complaints except as stated - Genitourinary Genitourinary: Present: abnormal vaginal bleeding (Postmenopausal bleeding 4 days) Medical,Surgical,& Family Hx - Medical History Cardio: History of: Hypertension Neurology: No history of: Seizures Other: History of: Cancer (breast ca) - Surgical History Cardiac Surgeries: Patient Denies: Cardiac Catheterization Thoracic Surgeries: Patient denies;: Lobectomy Neurologic Surgeries: Patient denies: Neurologic Surgery Reproductive Surgeries: Patient denies;: Gynecologic Surgery - Family History Family History: Reports;: Family Cancer (sister), Family Heart Disease (mother) - Social History Smoking Status: Unknown if ever smoked Frequency of Alcohol Use: None Type of Drug Use: None Exam - Constitutional Vitals: Period Temp Pulse Resp BP Sys/Maravilla Pulse Ox Last 24 Hr 97.2 F-99.6 F 100-111 16-20 86-95/47-56 94-99 General appearance: no acute distress - Head Head exam: Present: normocephalic - Neck Neck exam: Present: normal inspection - Respiratory Respiratory exam: Present: clear to auscultation bilaterally - Cardiovascular Cardiovascular exam: Present: regular rate and rhythm - GI/Abdominal GI/Abdominal exam: Present: normal bowel sounds, distended, soft - Extremities Exam Extremities exam: Present: normal inspection - Back Exam Back exam: Present: normal inspection - Neurological Exam Neurological exam: Present: alert, oriented X3 - Skin Skin exam: Present: normal color, warm Results - Labs CBC & BMP: 09/01/16 04:00 09/01/16 04:00
--- NOTE | 2016-09-01 16:32 | Ultrasound Report ---
Referring Physician: Marianne Alvarez Exam: US pelvic complete Date: September 01, 2016 Reason: Postmenopausal bleeding Comparison: CT abdomen and pelvis July 13, 2016 Technique: Transabdominal grayscale ultrasound images of the pelvis are obtained. Ultrasound images were captured and stored. Findings: The uterus is anteverted and measures 6.9 x 4.6 x 3.4 cm. The endometrium measures 0.3 cm in thickness, which is within normal limits. The right ovary measures 3.7 x 2.0 x 1.8 cm, and the left ovary measures 1.8 x 1.8 x 1.4 cm. There is a 2.6 x 1.5 x 1.4 cm right ovarian cyst, which has a simple appearance. There is also moderate free fluid within the pelvis. Impression: 1. The uterus is unremarkable. 2. 2.6 cm right ovarian cyst. This is an unusual finding for a postmenopausal female, and follow-up is recommended to confirm a benign process. Of note, this is not clearly seen on the previous CT, and differential includes focal ascites in this patient with moderate free fluid within the pelvis. 3. Moderate free fluid within the pelvis. PROCEDURE INTERPRETED AT [facility] DEPARTMENT OF RADIOLOGY Final Report Signed by: Dr. Jaswinder Armenta
[2016-09-02 06:11] LABS: Basophils % 0.2 % (0.0-0.8); Eosinophils # 0.1 10*3/uL (0.0-0.87); Eosinophils % 1.4 % (0.00-10.9); Hematocrit 24.9 VOL% (35.7-47.0); Immature Granulocytes % 3.7 %; Immature Granulocytes Absolute 0.16 #; Lymphocytes # 0.5 10*3/uL (1.4-4.0); Mean Corpuscular HGB Conc 32.1 GM/DL (32-36); Mean Corpuscular Hemoglobin 28 PG (27-34); Mean Corpuscular Volume 85.6 FL (87-102); Monocytes # 0.6 10*3/uL (0.11-0.8); Monocytes % 13.6 % (1.7-12.7); NRBC # 0.03 10*3/uL; Neutrophils % 69.1 % (38.7-73.9); Red Blood Count 2.91 MC/CUMM (3.8-5.5); Red Cell Distribution Width 18.6 % (9.3-17.3); White Blood Count 4.3 T/CUMM (4-12)
[2016-09-02 06:34] LABS: Calcium 7.5 MG/DL (8.5-10.1); Osmolality,Calculated 273.5 MOS/KG (273-304); Potassium 4.4 MMOL/L (3.5-5.1)
[2016-09-02 06:39] LABS: Platelet Count 29 T/CUMM (130-400)
[2016-09-02 06:41] LABS: Band Neutrophils 4 % (0-10); Hypochromasia 2+; Lymphocytes 6 % (20-55); Platelet Estimate Decreased; Segmented Neutrophils 88 % (50-85); Total Cells Counted 100
--- NOTE | 2016-09-02 08:05 | Oncology Progress Note ---
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 Johns seems to be doing well this morning. She states that she did ambulate some with physical therapy yesterday. After she described to me it sounds like it was very little. She still was not taking in very much p.o. intake. On oral examination she has some oral candidiasis well treated with Diflucan. Her motivation still seems quite low and understandably so she has significant depression from her current situation. I again encouraged her to get out of bed and try to improve her in p.o. intake. Otherwise she will continue to decline. She still pancytopenic from her radiation and I am unable to do any type of chemotherapy due to this. I think read a good place to repeat staging scans with CT and bone scan. Anticipate that she will likely be in the hospital for a few more days. ANIMAL CARETAKER SUPERVISOR has seen her and has ordered a uterine ultrasound. Exam - Constitutional Vitals: Period Temp Pulse Resp BP Sys/Maravilla Pulse Ox Last 24 Hr 96.5 F-98.7 F 76-111 16-23 89-106/47-67 92-100 General appearance: normal weight, mild distress - Head Head Exam: Present: normocephalic, atraumatic - Eye Eye Exam: Present: EOMI Pupils: Present: PERRL - ENT ENT exam: Present: normal exam, other (Oral candidiasis and mucositis) - Neck Neck exam: Absent: lymphadenopathy, thyromegaly - Respiratory Respiratory exam: Present: CTAB. Absent: wheezes - Cardiovascular Cardiovascular exam: Present: RRR. Absent: JVD - GI/Abdominal GI/Abdominal exam: Present: soft. Absent: ascites, mass Results - Labs CBC & BMP: 09/02/16 04:30 09/02/16 04:30 Lab Results: I have reviewed the past 24 hour labs
[2016-09-02] MEDS: HYDROmorphone 2 MG/1 ML VIAL IV PRN (08:27)
--- NOTE | 2016-09-02 08:34 | Consultation ---
Assessment and Plan (1) Postmenopausal bleeding Status: Acute Assessment and plan: Pelvic ultrasound reveals a normal appearing uterus with a normal endometrial lining thickness. She does have what appears to be a small 2.5 cm ovarian cyst which was not visualized on previous CT scan. This appearance of an ovarian cyst could very likely be due to to the abdominal pelvic ascites more so than a true cyst. In light of her normal uterine findings, is most probable that her vaginal bleeding is due to the administration of anticoagulants and should resolve with the decrease in dosage. Patient would benefit from repeat pelvic ultrasound in 2 weeks follow-up on questionable ovarian cyst and I am happy to follow her as an outpatient. At this time she is not a good surgical candidate so no other gynecological intervention recommended at the current time. Current Visit: Yes (2) Bone metastases Status: Acute Current Visit: Yes (3) Intractable pain Status: Acute Current Visit: Yes (4) Breast cancer Status: Acute Current Visit: Yes (5) Vaginal bleeding Status: Acute Current Visit: Yes History of Present Illness - Data of Consult Consult date: 09/02/16 - Consult Narrative History of present illness: Ms. Johns is a 55 year old female This is a follow-up to consultation from yesterday secondary to postmenopausal bleeding. Patient underwent pelvic ultrasound with results for review CC: Luiz Ronquillo MD - Home Medications and Allergies Home Medications: Home Medications Medication Instructions Recorded Confirmed Type Ondansetron HCl 8 mg PO Q6HR PRN 07/13/16 08/27/16 History Polyethylene Glycol Powder 17 gm PO BID 08/15/16 08/27/16 History [Miralax] Dronabinol [Marinol] 5 mg PO BID #60 capsule 08/18/16 08/27/16 Rx Gabapentin Cap/Tab [Neurontin 100 mg PO TID #0 capsule 08/18/16 08/27/16 Rx Cap/Tab] Pantoprazole Tab [Protonix Tab] 40 mg PO DAILY #30 tablet 08/18/16 08/27/16 Rx Rivaroxaban [Xarelto] 10 mg PO BEDTIME #30 tablet 08/18/16 08/27/16 Rx fentaNYL 75 MCG/HR PATCH 1 patch TRANSDERM Q72H patch 08/18/16 08/27/16 Rx [Duragesic 75 Patch] oxyCODONE ER [OxyCONTIN] 40 mg PO Q12HR tablet 08/18/16 08/27/16 Rx Letrozole [Femara] 2.5 mg PO QAM 08/27/16 08/27/16 History Allergies/Adverse Reactions: Allergies Allergy/AdvReac Type Severity Reaction Status Date / Time No Known Allergies Allergy Verified 08/27/16 11:26 Medical,Surgical,& Family Hx - Medical History Cardio: History of: Hypertension Neurology: No history of: Seizures Other: History of: Cancer (breast ca) - Surgical History Cardiac Surgeries: Patient Denies: Cardiac Catheterization Thoracic Surgeries: Patient denies;: Lobectomy Neurologic Surgeries: Patient denies: Neurologic Surgery Reproductive Surgeries: Patient denies;: Gynecologic Surgery - Family History Family History: Reports;: Family Cancer (sister), Family Heart Disease (mother) - Social History Smoking Status: Unknown if ever smoked Frequency of Alcohol Use: None Type of Drug Use: None Exam - Constitutional Vitals: Period Temp Pulse Resp BP Sys/Maravilla Pulse Ox Last 24 Hr 96.5 F-98.7 F 76-111 16-23 89-106/47-67 92-100 Results - Labs CBC & BMP: 09/02/16 04:30 09/02/16 04:30
[2016-09-02] MEDS: oxyCODONE ER 40 MG TABLET PO SCH ×2 (09:47→20:25)
[2016-09-02] MEDS: LETROZOLE 2.5 MG TABLET PO SCH (09:47)
[2016-09-02] MEDS: fentaNYL 100 MCG/HR PATCH TRANSDERM SCH (09:47)
[2016-09-02] MEDS: FLUCONAZOLE INJ 200 MG in PREMIX 1 EACH IV SCH (09:47)
[2016-09-02] MEDS: LACTULOSE 20 GM/30 ML UDCUP PO SCH ×2 (09:47→20:26)
[2016-09-02] MEDS: PANTOPRAZOLE 40 MG TABLET PO SCH (09:47)
[2016-09-02] MEDS: GABAPENTIN 300 MG CAPSULE PO SCH ×2 (09:47→20:25)
--- NOTE | 2016-09-02 10:26 | CT Report ---
CT chest abdomen pelvis w con Indication: Metastatic breast cancer Comparison: CT abdomen pelvis dated July 13, 2016. CT chest dated May 31, 2016. Technique: Multiple axial tomographic images of the chest, abdomen and pelvis were obtained after the administration of 100 cc Omnipaque 350 intravenous contrast. Findings: Heart appears mildly prominent. No progressive mediastinal adenopathy. Emphysematous change of the lungs present. Small bilateral pleural effusions with moderate atelectasis of the bilateral lower lobes. No discrete pulmonary metastatic lesion identified. However, lesion within atelectatic lung is not excluded. Interval decrease in size of left breast mass measuring approximately 4.2 cm in largest axial dimension compared to 5.6 cm on comparison study when measured in similar fashion. Interval decreased size of left axillary and left subpectoral massing/adenopathy. 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 Interval progressed diffuse osseous metastatic disease including the proximal humeri bilaterally, scapula bilaterally, sternum, bilateral ribs, thoracic/lumbar/sacral spine, pelvis, and proximal bilateral femurs. Lesions are both lytic and sclerotic but are predominantly lytic. Patient remains at increased risk of fracture including spine. Mild superior and inferior endplate deformity of L4 appears unchanged. There is again prominent metastatic lesion within the left iliac wing with soft tissue component appearing more prominent than on prior exam measuring approximately 6.3 cm in largest axial dimension compared to 4.8 cm on comparison study. Interval progressed innumerable hepatic metastatic lesions. Interval placement of common duct stent with pneumobilia. Significant increased stacy hepatis massing measuring up to 5.6 cm in largest axial dimension compared to 3.5 cm on comparison study. Worsening splenomegaly. Interval development of moderate ascites. Pancreas appears grossly unchanged. No evidence of gastrointestinal obstruction. Bilateral adrenal glands and kidneys appear grossly unchanged. Urinary bladder, uterus, and adnexa appear grossly unchanged. Vasculature appears grossly unchanged. IMPRESSION: Interval progression of hepatic metastasis, osseous metastasis, and stacy hepatis metastasis. Interval development of small bilateral pleural effusions and moderate abdominal ascites. Interval placement of common duct stent with pneumobilia. Interval decrease in size of primary left breast lesion and left axillary/subpectoral lymphadenopathy. Detailed findings as above. The CT exam was performed using one or more of the following dose reduction techniques: Automated exposure control, adjustment of the mA and/or kV according to patient size, or use of iterative reconstruction technique. PROCEDURE INTERPRETED AT [facility] DEPARTMENT OF RADIOLOGY Final Report Signed by: Dr Jose Blanco
--- NOTE | 2016-09-02 12:50 | Nuclear Medicine Report ---
Exam: NM bone scan whole body Date: 09/02/2016 8:05 AM Indication: Metastatic breast cancer Comparison: 05/31/2016 Findings: The patient was given 30 mCi of technetium 99 MDP. Whole-body images were obtained. Diffuse bony metastatic disease present with multiple too numerous to count lesions over the calvarium over the ribs and thoracic and lumbar spine and lower cervical spine region. Abnormalities present over the iliac wings bilaterally. The ribs reveal multiple lesions. The long bones reveal lesions in the mid right humerus in the mid right femur and proximal left femur. Arthritic change present at the knees and ankles and shoulders. Impression: 1. Diffuse bony metastatic disease similar to previous studies. PROCEDURE INTERPRETED AT [facility] DEPARTMENT OF RADIOLOGY Final Report Signed by: Dr. Good Rucker
[2016-09-03 05:12] LABS: Basophils % 0.4 % (0.0-0.8); Eosinophils # 0.1 10*3/uL (0.0-0.87); Eosinophils % 1.3 % (0.00-10.9); Hematocrit 24.5 VOL% (35.7-47.0); Hemoglobin 7.9 GM/DL (12.0-16.0); Immature Granulocytes % 3.9 %; Immature Granulocytes Absolute 0.18 #; Lymphocytes # 0.6 10*3/uL (1.4-4.0); Mean Corpuscular HGB Conc 32.2 GM/DL (32-36); Mean Corpuscular Hemoglobin 28 PG (27-34); Monocytes # 0.6 10*3/uL (0.11-0.8); NRBC # 0.04 10*3/uL; Neutrophils # 3.1 10*3/uL (1.4-7.4); Neutrophils % 68.4 % (38.7-73.9); Red Blood Count 2.85 MC/CUMM (3.8-5.5); Red Cell Distribution Width 18.8 % (9.3-17.3); White Blood Count 4.6 T/CUMM (4-12)
[2016-09-03 05:19] LABS: Platelet Count 22 T/CUMM (130-400)
[2016-09-03 05:46] LABS: Calcium 7.4 MG/DL (8.5-10.1); Osmolality,Calculated 269.8 MOS/KG (273-304); Potassium 4.5 MMOL/L (3.5-5.1)
[2016-09-03 05:47] LABS: Band Neutrophils 7 % (0-10); Lymphocytes 5 % (20-55); Segmented Neutrophils 77 % (50-85); Total Cells Counted 100
[2016-09-03 05:48] LABS: Hypochromasia 1+; Microcytosis 1+; Platelet Estimate Decreased; Target Cells Slight
[2016-09-03] MEDS: HYDROmorphone 2 MG/1 ML VIAL IV PRN ×2 (07:39→15:42)
--- NOTE | 2016-09-03 09:38 | Oncology Progress Note ---
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 Johns is a 55-year-old black female with metastatic breast cancer with very faint estrogen positivity and diffuse bony involvement. She also has liver and lymph node involvement. She progressed to first-line chemotherapy just 1 month ago. We had to Antonino's chemo treatments due to radiotherapy to a large pelvic lesion causing significant pain. Her radiotherapy is now completed but has caused significant pancytopenia. She is admitted now for intractable pain and pancytopenia. Her platelet count today is only 22 and her hemoglobin is 7.9. She has no new complaints and she does not have any significant bleeding so I will hold off on a transfusion today but she will likely need 1 of the next 2 days. Her situation is very grim as she continues to deteriorate. She has a known left upper extremity DVT which we are not able to anticoagulate due to her faint vaginal bleed and pancytopenia. I had a lengthy discussion with her this morning about her CODE STATUS and she wants to be DNR at this point. I am unsure if she will ever leave the hospital at the rate we are going. She does not seem to have much motivation to ambulate or tolerate p.o. intake. If her blood counts will improve some, I would consider placing her on weekly chemotherapy as one last ditch effort to see if we can get some response. Her most recent treatment was with Taxotere and Cytoxan 4 weeks ago. She is on Femara here for estrogen blockade to see if we can get any type of response. A CT and bone scan done yesterday showed good response in the left breast and left axillary lymph nodes but progression in her liver and abdominal lymph nodes. Her bony disease appeared worse on scan as well. She has not had enough doses of Taxotere and Cytoxan to consider this a treatment failure. She and I will discuss resuming chemotherapy at a later date. Exam - Constitutional Vitals: Period Temp Pulse Resp BP Sys/Maravilla Pulse Ox Last 24 Hr 97.1 F-100.2 F 61-110 16-20 92-101/50-61 95-100 General appearance: normal weight, mild distress - Head Head Exam: Present: normocephalic, atraumatic - Eye Eye Exam: Present: EOMI Pupils: Present: PERRL - ENT ENT exam: Present: normal exam, normal oropharynx - Neck Neck exam: Absent: lymphadenopathy, thyromegaly - Respiratory Respiratory exam: Present: CTAB. Absent: wheezes - Cardiovascular Cardiovascular exam: Present: RRR. Absent: JVD - GI/Abdominal GI/Abdominal exam: Present: soft. Absent: ascites, distended, mass - Neurological Exam Neurological exam: Present: alert, oriented X3 - Psychiatric Psychiatric exam: Present: normal affect, normal mood - Skin Skin exam: Present: warm, dry Results - Labs CBC & BMP: 09/03/16 04:00 09/03/16 04:00 Lab Results: I have reviewed the past 24 hour labs
[2016-09-03] MEDS: LACTULOSE 20 GM/30 ML UDCUP PO SCH ×3 (09:40→20:14)
[2016-09-03] MEDS: LETROZOLE 2.5 MG TABLET PO SCH (09:41)
[2016-09-03] MEDS: oxyCODONE ER 40 MG TABLET PO SCH ×2 (09:41→20:15)
[2016-09-03] MEDS: FLUCONAZOLE INJ 200 MG in PREMIX 1 EACH IV SCH (09:42)
[2016-09-03] MEDS: PANTOPRAZOLE 40 MG TABLET PO SCH (09:42)
[2016-09-03] MEDS: GABAPENTIN 300 MG CAPSULE PO SCH ×2 (09:42→20:15)
[2016-09-03] MEDS: DEXT 5% NACL 0.45% KCL 40 MEQ 40 MEQ/1,000 ML BAG IV SCH ×3 (11:04→23:08)
[2016-09-04 05:28] LABS: Basophils % 0.2 % (0.0-0.8); Eosinophils % 0.9 % (0.00-10.9); Hematocrit 25.7 VOL% (35.7-47.0); Hemoglobin 8.3 GM/DL (12.0-16.0); Immature Granulocytes % 4.5 %; Immature Granulocytes Absolute 0.21 #; Lymphocytes # 0.6 10*3/uL (1.4-4.0); Lymphocytes % 13.1 % (21.3-54.2); Mean Corpuscular HGB Conc 32.3 GM/DL (32-36); Mean Corpuscular Hemoglobin 28 PG (27-34); Mean Corpuscular Volume 86.5 FL (87-102); Monocytes # 0.6 10*3/uL (0.11-0.8); Monocytes % 12.3 % (1.7-12.7); NRBC # 0.02 10*3/uL; Neutrophils # 3.2 10*3/uL (1.4-7.4); Red Blood Count 2.97 MC/CUMM (3.8-5.5); White Blood Count 4.7 T/CUMM (4-12)
[2016-09-04 05:31] LABS: Platelet Count 20 T/CUMM (130-400)
[2016-09-04 06:21] LABS: Calcium 7.7 MG/DL (8.5-10.1); Osmolality,Calculated 267.1 MOS/KG (273-304); Potassium 4.7 MMOL/L (3.5-5.1)
[2016-09-04] MEDS: HYDROmorphone 2 MG/1 ML VIAL IV PRN ×3 (07:37→17:59)
[2016-09-04 08:06] LABS: Band Neutrophils 31 % (0-10); Eosinophils 1 % (0-10); Hypochromasia 2+; Lymphocytes 4 % (20-55); Platelet Estimate Decreased; Segmented Neutrophils 62 % (50-85); Total Cells Counted 100
[2016-09-04] MEDS: LACTULOSE 20 GM/30 ML UDCUP PO SCH ×2 (09:27→21:38)
[2016-09-04] MEDS: oxyCODONE ER 40 MG TABLET PO SCH ×2 (09:27→21:37)
[2016-09-04] MEDS: LETROZOLE 2.5 MG TABLET PO SCH (09:27)
[2016-09-04] MEDS: GABAPENTIN 300 MG CAPSULE PO SCH ×2 (09:28→21:38)
[2016-09-04] MEDS: PANTOPRAZOLE 40 MG TABLET PO SCH (09:29)
[2016-09-04] MEDS: FLUCONAZOLE INJ 200 MG in PREMIX 1 EACH IV SCH (09:29)
--- NOTE | 2016-09-04 10:58 | Oncology Progress Note ---
Assessment and Plan (1) Breast cancer Status: Acute Assessment and plan: admitted for intractable pain - pain improved with fentanyl, oxycodone, gabapentin, and PRN dilaudid - continue with current pain management regimen - poor prognosis given POD as well as difficulty receive treatment with pancytopenia - continue with femara Current Visit: Yes (2) DVT (deep venous thrombosis) Status: Acute Assessment and plan: holding anticoagulation as risk of bleed greater than benefit given severe thrombocytopenia and recent vaginal bleed Current Visit: No (3) Pancytopenia Status: Acute Assessment and plan: - likely secondary to prior pelvic radiation - continue with supportive care to maintain platelets > 20,000 or higher if bleeding Current Visit: Yes Oncology Subjective PN Interval history: 55 year old female with PMHx of IDC with progression of disease, a DVT not on anticoagulation secondary to thrombocytopenia, pancytopenia secondary to prior pelvic radiation admitted for intractable pain. Today patient states pain better controlled with fentanyl, oxycodone, and PRN dilaudid. Refers some continued back pain. Refers chronic anorexia. Pelvic pain improved. No acute bleeding. No fevers. Exam - Constitutional Vitals: Period Temp Pulse Resp BP Sys/Maravilla Pulse Ox Last 24 Hr 96.7 F-99.5 F 98-109 16-20 88-101/53-60 95-98 General appearance: no acute distress, cachectic, other (chronic ill appearance) - Eye Eye Exam: Present: EOMI - Respiratory Respiratory exam: Present: decreased breath sounds - Cardiovascular Cardiovascular exam: Present: RRR - GI/Abdominal GI/Abdominal exam: Present: soft. Absent: ascites, distended, mass, tenderness - Extremities Exam Extremities exam: Present: edema - Neurological Exam Neurological exam: Present: oriented X3, other (lethargic) - Skin Skin exam: Present: warm Results - Labs CBC & BMP: 09/04/16 04:00 09/04/16 04:00
[2016-09-04] MEDS: DEXT 5% NACL 0.45% KCL 40 MEQ 40 MEQ/1,000 ML BAG IV SCH ×2 (14:30→20:42)
[2016-09-05] MEDS: HYDROmorphone 2 MG/1 ML VIAL IV PRN ×3 (04:15→22:44)
[2016-09-05 05:34] LABS: Basophils % 0.5 % (0.0-0.8); Eosinophils % 0.9 % (0.00-10.9); Hemoglobin 7.7 GM/DL (12.0-16.0); Immature Granulocytes % 5.5 %; Immature Granulocytes Absolute 0.24 #; Lymphocytes # 0.5 10*3/uL (1.4-4.0); Lymphocytes % 12.5 % (21.3-54.2); Mean Corpuscular HGB Conc 32.1 GM/DL (32-36); Mean Corpuscular Hemoglobin 28 PG (27-34); Monocytes # 0.5 10*3/uL (0.11-0.8); Monocytes % 12.5 % (1.7-12.7); NRBC # 0.03 10*3/uL; Neutrophils % 68.1 % (38.7-73.9); Red Blood Count 2.76 MC/CUMM (3.8-5.5); White Blood Count 4.3 T/CUMM (4-12)
[2016-09-05 05:39] LABS: Platelet Count 17 T/CUMM (130-400)
[2016-09-05 07:38] LABS: Band Neutrophils 20 % (0-10); Hypochromasia 2+; Lymphocytes 3 % (20-55); Microcytosis 1+; Nucleated Red Blood Cells 1 (0-5); Platelet Estimate Decreased; Polychromasia Slight; Segmented Neutrophils 70 % (50-85); Total Cells Counted 100
[2016-09-05] MEDS: DEXT 5% NACL 0.45% KCL 40 MEQ 40 MEQ/1,000 ML BAG IV SCH (08:55)
[2016-09-05] MEDS: FLUCONAZOLE INJ 200 MG in PREMIX 1 EACH IV SCH (08:56)
[2016-09-05] MEDS: GABAPENTIN 300 MG CAPSULE PO SCH ×2 (08:56→21:01)
[2016-09-05] MEDS: LACTULOSE 20 GM/30 ML UDCUP PO SCH ×2 (08:56→21:01)
[2016-09-05] MEDS: oxyCODONE ER 40 MG TABLET PO SCH ×2 (08:56→21:01)
[2016-09-05] MEDS: LETROZOLE 2.5 MG TABLET PO SCH (08:56)
[2016-09-05] MEDS ORDERED: SODIUM CHLORIDE 0.9% 250 ML IV PRN (08:57)
[2016-09-05] MEDS: PANTOPRAZOLE 40 MG TABLET PO SCH (08:57)
--- NOTE | 2016-09-05 09:19 | Oncology Progress Note ---
Assessment and Plan (1) Breast cancer Status: Acute Assessment and plan: admitted for intractable pain - improved - continue with pain management with fentanyl, oxycodone, gabapentin, and PRN dilaudid - very poor prognosis given POD as well as difficulty to receive treatment with pancytopenia and poor performance status - continue with femara Current Visit: Yes (2) Pancytopenia Status: Acute Assessment and plan: - likely secondary to prior pelvic radiation - continue with supportive care to maintain platelets > 20,000 or higher if bleeding -transfuse 1 unit platelets today - will repeat CBC in AM Current Visit: Yes (3) DVT (deep venous thrombosis) Status: Acute Assessment and plan: holding anticoagulation as risk of bleed greater than benefit given severe thrombocytopenia and recent vaginal bleed Current Visit: No Oncology Subjective PN Interval history: 55 year old female with PMHx of metastatic breast cancer with progression of disease admitted for intractable pain and failure to thrive. Today refers pain overall improved but continues to have back pain. Denies weakness of LE. Patient has chronic pancytopenia felt secondary to radiation to the pelvis with low platelets today and continued mild vaginal bleeding. No fevers. Continued poor PO intake and patient not moving out of bed. Continued stable swelling of RLE. No acute events. No SOB, no abdominal pain. Exam - Constitutional Vitals: Period Temp Pulse Resp BP Sys/Maravilla Pulse Ox Last 24 Hr 96.7 F-99.0 F 103-113 16-21 87-99/50-63 94-98 General appearance: no acute distress, cachectic, other (chronic ill appearance) - Eye Eye Exam: Present: EOMI - Respiratory Respiratory exam: Present: CTAB - Cardiovascular Cardiovascular exam: Present: RRR - GI/Abdominal GI/Abdominal exam: Present: distended, soft. Absent: mass, tenderness - Extremities Exam Extremities exam: Present: edema (RLE 2+) - Neurological Exam Neurological exam: Present: alert, oriented X3 - Psychiatric Psychiatric exam: Present: normal affect - Skin Skin exam: Present: warm Results - Labs CBC & BMP: 09/05/16 04:00 09/04/16 04:00
[2016-09-06] MEDS: HYDROmorphone 2 MG/1 ML VIAL IV PRN ×4 (01:46→19:24)
[2016-09-06 05:04] LABS: Basophils % 0.2 % (0.0-0.8); Eosinophils # 0.1 10*3/uL (0.0-0.87); Eosinophils % 1.4 % (0.00-10.9); Hematocrit 21.9 VOL% (35.7-47.0); Hemoglobin 7.1 GM/DL (12.0-16.0); Immature Granulocytes % 6.4 %; Immature Granulocytes Absolute 0.27 #; Lymphocytes # 0.5 10*3/uL (1.4-4.0); Lymphocytes % 11.9 % (21.3-54.2); Mean Corpuscular HGB Conc 32.4 GM/DL (32-36); Mean Corpuscular Hemoglobin 28 PG (27-34); Mean Corpuscular Volume 87.6 FL (87-102); Monocytes # 0.5 10*3/uL (0.11-0.8); Monocytes % 11.9 % (1.7-12.7); NRBC # 0.03 10*3/uL; Neutrophils # 2.9 10*3/uL (1.4-7.4); Neutrophils % 68.2 % (38.7-73.9); Red Cell Distribution Width 19.2 % (9.3-17.3); White Blood Count 4.2 T/CUMM (4-12)
[2016-09-06 05:07] LABS: Platelet Count 30 T/CUMM (130-400)
[2016-09-06 05:39] LABS: Calcium 7.9 MG/DL (8.5-10.1)
[2016-09-06 05:43] LABS: Band Neutrophils 2 % (0-10); Eosinophils 1 % (0-10); Hypochromasia 1+; Lymphocytes 10 % (20-55); Platelet Estimate Decreased; Segmented Neutrophils 77 % (50-85); Total Cells Counted 100
[2016-09-06 05:44] LABS: Microcytosis 1+
--- NOTE | 2016-09-06 08:14 | Oncology Progress Note ---
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 Johns is now even less responsive than when I saw her 3 days ago. She still will awaken with stimulation but otherwise will sleep for most of the day. She continues to need parenteral narcotics. Her daughter was present in the room this morning we discussed comfort measures. She does not think it is feasible for her to go home and we will most likely have her in the hospital for an extended period of time. We could consider placing her on a CALENDER SUPERVISOR pump at some point. She now has significant edema of her lower extremities. He does not show any obvious overt bleeding other than some vaginal spotting. We will have Ativan available for irritation since she seems to have spells. Exam - Constitutional Vitals: Period Temp Pulse Resp BP Sys/[place] Pulse Ox Last 24 Hr 97.1 F-99.1 F 96-109 16-19 84-120/48-76 96-100 General appearance: no acute distress, cachectic - Head Head Exam: Present: normocephalic, atraumatic - Eye Eye Exam: Present: EOMI Pupils: Present: PERRL - ENT ENT exam: Present: normal exam, normal oropharynx - Neck Neck exam: Absent: lymphadenopathy, thyromegaly - Respiratory Respiratory exam: Present: CTAB. Absent: wheezes - Cardiovascular Cardiovascular exam: Present: RRR. Absent: JVD - GI/Abdominal GI/Abdominal exam: Present: soft. Absent: ascites, distended, mass - Neurological Exam Neurological exam: Present: altered - Psychiatric Psychiatric exam: Present: normal affect, normal mood - Skin Skin exam: Present: warm, dry Results - Labs CBC & BMP: 09/06/16 03:26 09/06/16 03:26
[2016-09-06] MEDS: oxyCODONE ER 40 MG TABLET PO SCH ×2 (09:45→22:15)
[2016-09-06] MEDS: PANTOPRAZOLE 40 MG TABLET PO SCH (09:45)
[2016-09-06] MEDS: LACTULOSE 20 GM/30 ML UDCUP PO SCH ×2 (09:46→22:17)
[2016-09-06] MEDS: DEXT 5% NACL 0.45% KCL 40 MEQ 40 MEQ/1,000 ML BAG IV SCH (17:05)
[2016-09-07] MEDS: DEXT 5% NACL 0.45% KCL 40 MEQ 40 MEQ/1,000 ML BAG IV SCH ×2 (03:10→12:46)
[2016-09-07] MEDS ORDERED: NALOXONE 0.4 MG/ML VIAL IV PRN (07:58)
[2016-09-07] MEDS: HYDROmorphone 2 MG/1 ML VIAL IV PRN (08:00)
--- NOTE | 2016-09-07 08:03 | Oncology Progress Note ---
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 Johns seems quite agitated this morning is complaining of pain in her back in her heel. We have no plans of her going home and we are providing comfort measures only at this point. We will add a Dilaudid SUPERINTENDENT PLANT to improve her comfort. I will discontinue her oral medications as she is not able to take these at this time. Her family is well aware of her poor prognosis. I do not anticipate that she will survive more than a few days at best. She is no longer taking anything by mouth. Her friend was at bedside this morning on my exam. Will continue with fentanyl patch. Exam - Constitutional Vitals: Period Temp Pulse Resp BP Sys/[place] Pulse Ox Last 24 Hr 96.5 F-98.5 F 88-111 17-20 84-110/48-70 94-99 Results - Labs CBC & BMP: 09/06/16 03:26 09/06/16 03:26 Lab Results: I have reviewed the past 24 hour labs
[2016-09-07] MEDS: HYDROmorphone PCA 30 MG/30 ML SYRINGE IV SCH (09:12)
[2016-09-07] MEDS: PANTOPRAZOLE 40 MG TABLET PO SCH (09:27)
[2016-09-07] MEDS: LACTULOSE 20 GM/30 ML UDCUP PO SCH ×2 (09:27→20:16)
[2016-09-07] MEDS: LORazepam 2 MG/1 ML VIAL IV PRN (20:10)
--- NOTE | 2016-09-08 08:19 | Oncology Progress Note ---
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 She did open her eyes today during my visit but was not able to give any real meaningful response. I do not expect her to live more than 48 hours. I explained to her friend at bedside that we are basically going day-to-day and actually hour to hour at this point. Her daughter is on her way from [place] today and will likely need to stay the remainder of the time since I do not expect her to live much longer. She appears to be comfortable. She is having very good care by the nurses and her friend turns her every 2-3 hours. This is a very sad case of a young lady with triple negative breast cancer that has progressed to chemotherapy. We will continue with her current measures. Exam - Constitutional Vitals: Period Temp Pulse Resp BP Sys/[place] Pulse Ox Last 24 Hr 96.0 F-99.1 F 106-110 11-22 89-112/50-62 98-100 General appearance: mild distress, cachectic - Head Head Exam: Present: normocephalic, atraumatic - Eye Eye Exam: Present: EOMI Pupils: Present: PERRL - ENT ENT exam: Present: normal exam, normal oropharynx - Neck Neck exam: Absent: lymphadenopathy - Respiratory Respiratory exam: Present: CTAB. Absent: wheezes - Cardiovascular Cardiovascular exam: Present: RRR. Absent: JVD Results - Labs CBC & BMP: 09/06/16 03:26 09/06/16 03:26 Lab Results: I have reviewed the past 24 hour labs
[2016-09-08] MEDS: PANTOPRAZOLE 40 MG TABLET PO SCH (08:45)
[2016-09-08] MEDS: LACTULOSE 20 GM/30 ML UDCUP PO SCH (08:45)
[2016-09-08] MEDS: DEXT 5% NACL 0.45% KCL 40 MEQ 40 MEQ/1,000 ML BAG IV SCH (08:48)
[2016-09-08] MEDS: HYDROmorphone PCA 30 MG/30 ML SYRINGE IV SCH (09:47)
[2016-09-08 11:53] VITALS: BP 108/55
[2016-09-08] MEDS: LORazepam 2 MG/1 ML VIAL IV PRN (13:56)
[2016-09-08] MEDS: HYDROmorphone 2 MG/1 ML VIAL IV PRN ×2 (14:51→16:59)
[2016-09-08] MEDS ORDERED: LORazepam 2 MG/1 ML VIAL IV PRN ×2 (16:31→16:56)
== END 2016-09-08 22:31 | disposition expired | DRG 947 ==
LOC: N.ED 11:14 → N.EDINP 11:14 → OBSVTOIN 13:51 → N.4E 14:26
PROVIDERS: ADMIT Specialist; ATTEND Specialist